=== PATIENT | female | born 1995 | race Two or more races ===

== ENCOUNTER 2019-05-23 14:13 | Emergency (ER) | payer MEDICAID ==
[~2019-05-23] VITALS: Ht 165.1 cm; Wt 81.6 kg
[2019-05-23] MEDS ORDERED: IV NORMAL SALINE 1000ML BAG 1,000 ML IV SCH (14:40)
[2019-05-23 14:53] LABS: BILIRUBIN,URINE NEGATIVE (NEG); CLARITY,URINE CLEAR; COLOR,URINE YELLOW; NITRITE,URINE NEGATIVE (NEG); PH,URINE 6.5; PROTEIN,URINE NEGATIVE (NEG-TRACE); UROBILINOGEN,URINE 0.2 mg/dL (0.2 mg/dL)
[2019-05-23 14:53] LABS: BASO % 1 % (0-3); EOS # 0.2 x10^3/uL (0.0-0.7); EOS % 2 % (0-3); HEMATOCRIT 31.2 % (36.0-47.0); HEMOGLOBIN 10.1 g/dL (12.0-15.5); LYMPH # 2.3 x10^3/uL (1.0-4.8); LYMPH % 25 % (24-48); MEAN CORPUSCULAR HEMOGLOBIN 23 pg (25-35); MEAN CORPUSCULAR HGB CONC 32 g/dL (31-37); MEAN CORPUSCULAR VOLUME 70 fL (79-100); MONO # 0.7 x10^3/uL (0.0-1.1); MONO % 7 % (0-9); NEUT # 6.1 x10^3/uL (1.8-7.7); NEUT % 66 % (31-73); PLATELET COUNT 266 x10^3/uL (140-400); RED BLOOD COUNT 4.46 x10^6/uL (3.50-5.40); RED CELL DISTRIBUTION WIDTH 17.3 % (11.5-14.5); WHITE BLOOD COUNT 9.2 x10^3/uL (4.0-11.0)
--- NOTE | 2019-05-23 14:57 | PHYS DOC ---
Adult General Chief Complaint Chief Complaint: DIZZY/LIGHT HEADED HPI HPI Patient is a 23 year old non-Jamaican speaking female patient who presents with present of dizziness. Patient is at 3 months of without having any OB care with complaining of intermittent episodes of dizziness for one week without nausea and vomiting, abdominal pain, vaginal bleeding, focal neuro deficit. Patient had the same problem in her previous . Review of Systems Review of Systems Constitutional: Denies fever or chills [] Eyes: Denies change in visual acuity, redness, or eye pain [] HENT: Denies nasal congestion or sore throat [] Respiratory: Denies cough or shortness of breath [] Cardiovascular: No additional information not addressed in HPI [] GI: Denies abdominal pain, vomiting, bloody stools or diarrhea, reports nausea [] : Denies dysuria or hematuria [] Musculoskeletal: Denies back pain or joint pain [] Integument: Denies rash or skin lesions [] Neurologic: Denies headache, focal weakness or sensory changes [] Endocrine: Denies polyuria or polydipsia [] All other systems were reviewed and found to be within normal limits, except as documented in this note. Current Medications Current Medications Current Medications Medications (Trade) Dose Ordered Sig/Clif Start Time Stop Time Status Last Admin Dose Admin Sodium Chloride 1,000 ml @ 1,000 mls/hr Q1H 05/23/19 14:40 05/23/19 15:39 DC 05/23/19 15:04 1,000 MLS/HR Allergies Allergies Allergies Coded Allergies Type Severity Reaction Last Updated Verified No Known Drug Allergies 05/23/19 No Physical Exam Physical Exam Constitutional: Well developed, well nourished, no acute distress, non-toxic appearance. [] HENT: Normocephalic, atraumatic, bilateral external ears normal, oropharynx moist, no oral exudates, nose normal. [] Eyes: PERRLA, EOMI, conjunctiva normal, no discharge. [] Neck: Normal range of motion, no tenderness, supple, no stridor. [] Cardiovascular:Heart rate regular rhythm, no murmur [] Lungs & Thorax: Bilateral breath sounds clear to auscultation [] Abdomen: Bowel sounds normal, soft, no tenderness, no masses, no pulsatile masses. [] Skin: Warm, dry, no erythema, no rash. [] Back: No tenderness, no CVA tenderness. [] Extremities: No tenderness, no cyanosis, no clubbing, ROM intact, no edema. [] Neurologic: Alert and oriented X 3, normal motor function, normal sensory function, no focal deficits noted. [] Psychologic: Affect normal, judgement normal, mood normal. [] Current Patient Data Lab Values Laboratory Tests Test 05/23/19 14:35 05/23/19 14:40 05/23/19 14:45 Urine Collection Type Unknown Urine Color Yellow Urine Clarity Clear Urine pH 6.5 Urine Specific Kathleen 1.015 Urine Protein Negative mg/dL (NEG-TRACE) Urine Glucose (UA) Negative mg/dL (NEG) Urine Ketones (Stick) Negative mg/dL (NEG) Urine Blood Trace (NEG) Urine Nitrite Negative (NEG) Urine Bilirubin Negative (NEG) Urine Urobilinogen Dipstick 0.2 mg/dL (0.2 mg/dL) Urine Leukocyte Esterase Moderate (NEG) Urine RBC 1-2 /HPF (0-2) Urine WBC 11-20 /HPF (0-4) Urine Squamous Epithelial Cells Many /LPF Urine Bacteria Few /HPF (0-FEW) Urine Mucus Slight /LPF POC Urine HCG, Qualitative Hcg positive (Negative) White Blood Count 9.2 x10^3/uL (4.0-11.0) Red Blood Count 4.46 x10^6/uL (3.50-5.40) Hemoglobin 10.1 g/dL (12.0-15.5) L Hematocrit 31.2 % (36.0-47.0) L Mean Corpuscular Volume 70 fL (79-100) L Mean Corpuscular Hemoglobin 23 pg (25-35) L Mean Corpuscular Hemoglobin Concent 32 g/dL (31-37) Red Cell Distribution Width 17.3 % (11.5-14.5) H Platelet Count 266 x10^3/uL (140-400) Neutrophils (%) (Auto) 66 % (31-73) Lymphocytes (%) (Auto) 25 % (24-48) Monocytes (%) (Auto) 7 % (0-9) Eosinophils (%) (Auto) 2 % (0-3) Basophils (%) (Auto) 1 % (0-3) Neutrophils # (Auto) 6.1 x10^3/uL (1.8-7.7) Lymphocytes # (Auto) 2.3 x10^3/uL (1.0-4.8) Monocytes # (Auto) 0.7 x10^3/uL (0.0-1.1) Eosinophils # (Auto) 0.2 x10^3/uL (0.0-0.7) Basophils # (Auto) 0.0 x10^3/uL (0.0-0.2) Platelet Estimate Adequate (ADEQUATE) Hypochromasia Slight Anisocytosis Slight Microcytosis Mod Ovalocytes Occ Schistocytes Occ Sodium Level 139 mmol/L (136-145) Potassium Level 3.1 mmol/L (3.5-5.1) L Chloride Level 103 mmol/L (98-107) Carbon Dioxide Level 24 mmol/L (21-32) Anion Gap 12 (6-14) Blood Urea Nitrogen 8 mg/dL (7-20) Creatinine 0.6 mg/dL (0.6-1.0) Estimated GFR (Cockcroft-Gault) 125.0 BUN/Creatinine Ratio 13 (6-20) Glucose Level 108 mg/dL (70-99) H Calcium Level 8.8 mg/dL (8.5-10.1) Total Bilirubin 0.2 mg/dL (0.2-1.0) Aspartate Amino Transferase (AST) 19 U/L (15-37) Alanine Aminotransferase (ALT) 16 U/L (14-59) Alkaline Phosphatase 52 U/L (46-116) Total Protein 8.0 g/dL (6.4-8.2) Albumin 3.0 g/dL (3.4-5.0) L Albumin/Globulin Ratio 0.6 (1.0-1.7) L Laboratory Tests 05/23/19 14:45 Laboratory Tests 05/23/19 14:45 EKG EKG [] Radiology/Procedures Radiology/Procedures [][facility] [address] [place] [address] IMAGING REPORT Signed PATIENT: ROMEO HARDEN ACCOUNT: [id number] : 1995 LOCATION: ER AGE: 23 SEX: F EXAM STATUS: REG ER ORD. PHYSICIAN: KEE OAKES MD REASON: unknown age of , dizzines PROCEDURE: OB < 14 WKS CLINICAL HISTORY: , dizziness COMPARISON: None available. TECHNIQUE: Transabdominal sonography was performed FINDINGS: An intrauterine gestational sac is present. An embryo is identified .Cardiac activity is visualized and documented at a rate of 158 beats per minute. There is no subchorionic fluid collection. Based on a crown rump length averaging 7.1 cm, the estimated gestational age is 13 weeks, 2 days. Estimated date of delivery is 11/26/2019. The right ovary measures 2.9 x 1.9 x 1.6 cm. Flow seen to the right ovary. The left ovary was not seen. The uterus measures 14.1 x 12 x 11 cm There is no pelvic free fluid. IMPRESSION: 1. Single live intrauterine gestation with mean sonographic age of 13 weeks, 2 days. The estimated date of delivery is 11/26/2019. 2. No abnormal adnexal masses Electronically signed by: Leonard Suero MD (05/23/2019 3:48 PM) [facility] DICTATED and SIGNED BY: LEONARD SUERO MD DATE: 05/23/19 1548 Course & Med Decision Making Course & Med Decision Making Pertinent Labs and Imaging studies reviewed. (See chart for details) Evaluation of patient in ER showed 23-year-old she is taking female patient at 3 months of gestation with complaining of dizziness. Patient had unremarkable physical exam. Labs show potassium of 3.1 and UTI. OB ultrasound showed intrauterine at 13 weeks and 2 days. She treated with IV fluid and felt better. She was advised to follow-up with on-call [employer] doctor Alen and increase fluid intake. Dragon Disclaimer Dragon Disclaimer This electronic medical record was generated, in whole or in part, using a voice recognition dictation system. Departure Departure Impression: Primary Impression: Urinary tract infection affecting Additional Impressions: Hypokalemia Currently Dizziness Disposition: 01 HOME, SELF-CARE (at 1605) Condition: IMPROVED Referrals: NO PCP (PCP) KATINA HEART MD Patient Instructions: ABCs of , Hypokalemia, - Urinary Tract Infection Additional Instructions: Drink plenty of liquids Follow-up with [employer] [employer] physician in 3-5 days Return to ER if not getting better Scripts Ondansetron Hcl (ZOFRAN) 4 Mg Tablet 1 TAB PO PRN Q6-8HRS for nausea, #12 TAB Prov: KEE OAKES MD 05/23/19 Cephalexin (KEFLEX) 500 Mg Capsule 1 CAP PO Q8HRS, #21 CAP 0 Refills Prov: KEE OAKES MD 05/23/19 Problem Qualifiers Additional Impressions: Currently Weeks of gestation: 13 weeks Qualified Codes: Z3A.13 - 13 weeks gestation of KEE OAKES MD May 23, 2019 14:57
[2019-05-23 14:58] LABS: SQUAMOUS EPITHELIAL CELL,UR MANY /LPF
[2019-05-23 14:59] LABS: BACTERIA,URINE FEW /HPF (0-FEW)
[2019-05-23 15:10] LABS: CALCIUM 8.8 mg/dL (8.5-10.1); CREATININE 0.6 mg/dL (0.6-1.0); POTASSIUM 3.1 mmol/L (3.5-5.1)
[2019-05-23 15:12] LABS: ALBUMIN/GLOBULIN RATIO 0.6 (1.0-1.7); TOTAL BILIRUBIN 0.2 mg/dL (0.2-1.0)
[2019-05-23 15:36] VITALS: BP 116/66
[2019-05-23 15:40] LABS: PLT ESTIMATE ADEQUATE (ADEQUATE)
[2019-05-23 15:41] LABS: ANISOCYTOSIS SLIGHT; HYPOCHROMIA SLIGHT; MICROCYTOSIS MOD; OVALOCYTES OCC; SCHISTOCYTES OCC
--- NOTE | 2019-05-23 15:51 | RAD ---
CLINICAL HISTORY: , dizziness COMPARISON: None available. TECHNIQUE: Transabdominal sonography was performed FINDINGS: An intrauterine gestational sac is present. An embryo is identified .Cardiac activity is visualized and documented at a rate of 158 beats per minute. There is no subchorionic fluid collection. Based on a crown rump length averaging 7.1 cm, the estimated gestational age is 13 weeks, 2 days. Estimated date of delivery is 11/26/2019. The right ovary measures 2.9 x 1.9 x 1.6 cm. Flow seen to the right ovary. The left ovary was not seen. The uterus measures 14.1 x 12 x 11 cm There is no pelvic free fluid. IMPRESSION: 1. Single live intrauterine gestation with mean sonographic age of 13 weeks, 2 days. The estimated date of delivery is 11/26/2019. 2. No abnormal adnexal masses Electronically signed by: Leonard White MD (05/23/2019 3:48 PM) [facility]
[2019-05-23] MEDS ORDERED: CEPH-264 PO (16:05)
[2019-05-23] MEDS ORDERED: ONDA4TAB7 PO (16:05)
[2019-05-23] MEDS ORDERED: POTASSIUM CHLORIDE 20 MEQ TABLET.ER. PO ONE (16:15)
== END 2019-05-23 16:20 | disposition home or self-care (01) ==
LOC: ER 14:13
DX: O23.41 Unspecified infection of urinary tract in pregnancy, first trimester (principal); O99.281 Endocrine, nutritional and metabolic diseases complicating pregnancy, first trimester; E87.6 Hypokalemia; R42 Dizziness and giddiness; Z3A.13 13 weeks gestation of pregnancy
CPT/HCPCS: 36415; 76801; 80053; 81001; 81025; 85025; 87086; 96360; 99285; J7030

== ENCOUNTER → 2019-06-26 | Outpatient (CLI) | payer MEDICAID, OTHER ==
[~2019-06-26] MED LIST: CEPH-264 PO; ONDA4TAB7 PO
[2019-06-26 15:17] LABS: BASO % 0 % (0-3); EOS # 0.2 x10^3/uL (0.0-0.7); EOS % 2 % (0-3); HEMATOCRIT 32.8 % (36.0-47.0); HEMOGLOBIN 10.6 g/dL (12.0-15.5); LYMPH # 2.2 x10^3/uL (1.0-4.8); LYMPH % 21 % (24-48); MEAN CORPUSCULAR HEMOGLOBIN 23 pg (25-35); MEAN CORPUSCULAR HGB CONC 33 g/dL (31-37); MEAN CORPUSCULAR VOLUME 72 fL (79-100); MONO # 0.6 x10^3/uL (0.0-1.1); MONO % 6 % (0-9); NEUT # 7.8 x10^3/uL (1.8-7.7); NEUT % 72 % (31-73); PLATELET COUNT 265 x10^3/uL (140-400); RED BLOOD COUNT 4.58 x10^6/uL (3.50-5.40); RED CELL DISTRIBUTION WIDTH 18.5 % (11.5-14.5); WHITE BLOOD COUNT 10.8 x10^3/uL (4.0-11.0)
[2019-06-26 18:54] LABS: OVALOCYTES OCC
[2019-06-26 18:55] LABS: ANISOCYTOSIS SLIGHT; MICROCYTOSIS SLIGHT; PLT ESTIMATE ADEQUATE (ADEQUATE)
[2019-06-27 16:09] LABS: RUBELLA IGG ANTIBODY <0.90 index (Immune >0.99)
== END | disposition home or self-care (01) ==
LOC: LAB 14:53
PROVIDERS: ATTEND Obstetrics & Gynecology
DX: Z33.1 Pregnant state, incidental (principal)
CPT/HCPCS: 36415; 85025; 86592; 86703; 86762; 86787; 86803; 86850; 86900; 86901; 87086; 87340

== ENCOUNTER 2019-07-08 21:04 | Emergency (ER) | payer OTHER ==
[~2019-07-08] VITALS: Ht 165.1 cm; Wt 104.0 kg
[2019-07-08 21:51] VITALS: BP 122/71
--- NOTE | 2019-07-08 21:57 | PHYS DOC ---
Past Medical History Past Medical History: No Pertinent History (PASCUAL SANCHEZ APRN) Past Surgical History: No Surgical History (PASCUAL SANCHEZ APRN) Smoking Status: Never Smoker Alcohol Use: None Drug Use: None (PASCUAL SANCHEZ APRN) Attending Signature I have participated in the care of this patient and I have reviewed and agree with all pertinent clinical information above including history, exam, and recommendations. (DELANEY GARCIA MD) Adult General Chief Complaint Chief Complaint: FEVER HPI HPI Patient is a 23 year old female 2 para 1 currently 5 months presenting to the ED today complaining of body aches, subjective fevers, cough, symptoms began today. Denies any abdominal pain or vaginal bleeding. Patient reports following up with her [employer] for care. (PASCUAL SANCHEZ APRN) Review of Systems Review of Systems Constitutional: Reports subjective fevers, body aches, chills Eyes: Denies change in visual acuity, redness, or eye pain [] HENT: Denies nasal congestion or sore throat [] Respiratory: Reports cough, denies shortness of breath [] Cardiovascular: No additional information not addressed in HPI [] GI: Reports . Denies abdominal pain, nausea, vomiting, bloody stools or diarrhea [] : Denies dysuria or hematuria [] Musculoskeletal: Denies back pain or joint pain [] Integument: Denies rash or skin lesions [] Neurologic: Denies headache, focal weakness or sensory changes [] All other systems were reviewed and found to be within normal limits, except as documented in this note. (PASCUAL SANCHEZ APRN) Allergies Allergies Allergies Coded Allergies Type Severity Reaction Last Updated Verified No Known Drug Allergies 05/23/19 No (DELANEY GARCIA MD) Physical Exam Physical Exam Constitutional: Well developed, well nourished, no acute distress, non-toxic appearance. [] HENT: Normocephalic, atraumatic, bilateral external ears normal, oropharynx moist, no oral exudates, nose normal. [] Eyes: PERRLA, EOMI, conjunctiva normal, no discharge. [] Neck: Normal range of motion, no tenderness, supple, no stridor. [] Cardiovascular:Heart rate regular rhythm, no murmur [] Lungs & Thorax: Bilateral breath sounds clear to auscultation [] Abdomen: Gravid abdomen. Bowel sounds normal, soft, no tenderness, no masses, no pulsatile masses. [] Skin: Warm, dry, no erythema, no rash. [] Back: No tenderness, no CVA tenderness. [] Extremities: No tenderness, no cyanosis, no clubbing, ROM intact, no edema. [] Neurologic: Alert and oriented X 3, normal motor function, normal sensory function, no focal deficits noted. [] Psychologic: Affect normal, judgement normal, mood normal. [] (PASCUAL SANCHEZ APRN) Current Patient Data Vital Signs Vital Signs Date Time Temp Pulse Resp B/P (MAP) Pulse Ox O2 Delivery O2 Flow Rate FiO2 07/08/19 21:51 98.8 100 16 122/71 (88) 100 Room Air 98.8 (DELANEY GARCIA MD) Lab Values Laboratory Tests Test 07/08/19 21:40 Influenza Type A Antigen Positive (NEGATIVE) Influenza Type B Antigen Negative (NEGATIVE) (DELANEY GARCIA MD) Lab Values Laboratory Tests Test 07/08/19 21:40 Influenza Type A Antigen Positive (NEGATIVE) Influenza Type B Antigen Negative (NEGATIVE) (PASCUAL SANCHEZ APRN) EKG EKG [] (PASCUAL SANCHEZ APRN) Radiology/Procedures Radiology/Procedures [] (PASCUAL SANCHEZ APRN) Course & Med Decision Making Course & Med Decision Making Pertinent Labs and Imaging studies reviewed. (See chart for details) This is a 23-year-old female patient currently 5 months presenting today with flulike symptoms including subjective fevers, body aches, chills, cough, symptoms began today. Positive for influenza a, discharged on Tamiflu. Follow-up with primary care doctor in the course of next week as well as [employer]. (PASCUAL SANCHEZ APRN) Dragon Disclaimer Dragon Disclaimer This electronic medical record was generated, in whole or in part, using a voice recognition dictation system. (PASCUAL SANCHEZ APRN) Departure Departure Impression: Primary Impression: Cough Additional Impression: Influenza A Disposition: 01 HOME, SELF-CARE Condition: STABLE Referrals: KATINA HEART MD (PCP) Follow-up next week Patient Instructions: Cough, Adult, [id number], Influenza A (H1N1) Additional Instructions: You have influenza A, we put you on Tamiflu, take it as prescribed until completed. Please take Tylenol as needed for fever. Push fluids. Maintain good hand hygiene and follow-up with your own primary care doctor and [employer] next week Scripts Oseltamivir Phosphate (TAMIFLU) 75 Mg Capsule 1 CAP PO BID, #10 CAP Prov: PASCUAL SANCHEZ APRN 07/08/19 Problem Qualifiers PASCUAL SANCHEZ APRN Jul 08, 2019 21:57 DELANEY GARCIA MD Jul 09, 2019 03:31
[2019-07-08 22:08] LABS: INFLUENZA A PATIENT POSITIVE (NEGATIVE); INFLUENZA B PATIENT NEGATIVE (NEGATIVE)
[2019-07-08] MEDS ORDERED: OSEL75CA PO (22:16)
== END 2019-07-08 22:34 | disposition home or self-care (01) ==
LOC: ER 21:04
DX: O98.512 Other viral diseases complicating pregnancy, second trimester (principal); J10.1 Influenza due to other identified influenza virus with other respiratory manifestations; Z3A.20 20 weeks gestation of pregnancy
CPT/HCPCS: 87804; 99284

== ENCOUNTER → 2019-07-10 | Outpatient (CLI) | payer OTHER ==
[2019-07-08 21:51] VITALS: BP 122/71
[~2019-07-10] MED LIST changes: +OSEL75CA PO
--- NOTE | 2019-07-10 17:54 | RAD ---
Clinical indications: Anatomic survey. COMPARISON: May 23, 2019. Findings: A single intrauterine fetus is seen in breech position. heart rate is 136 beats per minute. BPD is 5.11 cm which equals 21 weeks 3 days. HC is 19.38 cm which equals 21 weeks 4 days. AC is 16.32 cm which equals 21 weeks 3 days. FL is 3.61 cm which equals 21 weeks 3 days. Average gestational age by ultrasound is 21 weeks 3 days +/- 12 days with an EDC of November 17, 2019. EDC on the previous study was November 26, 2019. Therefore, the fetus is larger for gestational age but within normal range limits. Estimated weight is 0 lbs and 15 oz. A four-chamber heart and three-vessel cord are identified. stomach and urinary bladder are identified. kidneys are unremarkable. Cord insertion site is unremarkable. The intracranial structures and spine are morphologically normal in appearance. The ventricular trigone measurement is 7.7 mm. Cisterna magna measurement is 5.2 mm. Four extremities are identified. CELIO using the four quadrant method is 17.5 cm. Cervical length is 3.3 cm. A grade 0 anterior fundal placenta is seen. No placenta previa and no placenta abruptio is identified. The maternal ovaries are not visualized. Impression: Single IUP with gestational age of 21 weeks 3 days. Larger for gestational age but within normal range limits. Electronically signed by: Tylor Meeks MD (07/10/2019 5:51 PM) [facility]
== END | disposition home or self-care (01) ==
LOC: US 10:08
PROVIDERS: ATTEND Obstetrics & Gynecology
DX: Z34.02 Encounter for supervision of normal first pregnancy, second trimester (principal); Z3A.21 21 weeks gestation of pregnancy
CPT/HCPCS: 36415; 76805; 81511